=== PATIENT | male | born 1980 | race Caucasian/White ===

== ENCOUNTER 2016-03-30 19:57 | Emergency (ER) | payer OTHER ==
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
[2016-03-30] MEDS ORDERED: FLUoxetine HCL 20 MG CAP PO STA (21:40)
[2016-03-30] MEDS ORDERED: LORazepam 0.5 MG TAB PO STA (21:46)
[2016-03-30] MEDS ORDERED: LORazepam 1 MG TAB PO STA (22:38)
[2016-03-30 23:25] VITALS: BP 120/80; PULSE 62; RESP 18; TEMP 98
[2016-03-31] MEDS ORDERED: LORazepam 0.5 MG TAB PO SCH (21:00)
== END 2016-03-30 23:51 | disposition home or self-care (01) ==
LOC: EC 19:57
DX: F32.9 Major depressive disorder, single episode, unspecified (principal); F41.9 Anxiety disorder, unspecified; F90.9 Attention-deficit hyperactivity disorder, unspecified type; F17.200 Nicotine dependence, unspecified, uncomplicated; G40.909 Epilepsy, unspecified, not intractable, without status epilepticus; Z79.899 Other long term (current) drug therapy
CPT/HCPCS: 80306; 82075; 99284

== ENCOUNTER 2016-04-08 12:35 | Inpatient (IN) | payer MEDICAID, OTHER ==
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
[2016-04-08 17:42] VITALS: BMI 20.5
[2016-04-08] MEDS ORDERED: MAGNESIUM HYDROXIDE 2,400 MG/10 ML CUP PO PRN (18:06)
[2016-04-08] MEDS ORDERED: MAG HYDROX/AL HYDROX/SIMETH 30 ML CUP PO PRN (18:06)
[2016-04-08] MEDS ORDERED: ZIPRASIDONE 20 MG VIAL IM PRN (18:08)
[2016-04-08] MEDS: LORazepam 1 MG TAB PO PRN (18:43)
[2016-04-08] MEDS: DOXEPIN 10 MG CAP PO SCH (20:57)
[2016-04-08] MEDS: ACETAMINOPHEN TAB 325 MG TAB PO PRN (20:58)
[2016-04-09] MEDS ORDERED: FLUoxetine HCL 20 MG CAP PO SCH (09:00)
[2016-04-09] MEDS ORDERED: NICOTINE 14MG/24HR PATCH TRANSDERM SCH (09:00)
[2016-04-09] MEDS: ACETAMINOPHEN TAB 325 MG TAB PO PRN ×4 (09:04→22:14)
[2016-04-09] MEDS: LORazepam 1 MG TAB PO PRN ×2 (09:04→18:48)
[2016-04-09 09:13] LABS: Basophils # (A) 0.1 k/uL (0-0.2); Basophils % (A) 1 %; CH 31.4; CHCM 32.6; Eosinophils # (A) 0.2 k/uL (0-0.7); Eosinophils % (A) 2 %; HCT 46.2 % (39.0-53.0); HGB 14.4 gm/dL (13.0-17.5); Luc % (Auto) 1; Lymphocytes % (A) 19 %; MCH 30.2 pg (25.0-35.0); MCHC 31.2 g/dL (31.0-37.0); MCV 96.6 fL (80.0-100.0); Mean Platelet Volume 7.2; Monocytes # (A) 0.6 k/uL (0-1.0); Monocytes % (A) 6 %; Neutrophils # (A) 7.5 k/uL (1.3-7.7); Neutrophils % (A) 72 %; RBC 4.78 m/uL (4.30-5.90); RDW 12.6 % (11.5-15.5); WBC 10.4 k/uL (3.8-10.6); WBC (Perox) 10.88
[2016-04-09 10:26] LABS: ALT 24 U/L (21-72); AST 15 U/L (17-59); Alkaline Phosphatase 97 U/L (38-126); Anion Gap 11 mmol/L; Blood Urea Nitrogen 17 mg/dL (9-20); Calcium 9.9 mg/dL (8.4-10.2); Carbon Dioxide 27 mmol/L (22-30); Chloride 106 mmol/L (98-107); Glucose 101 mg/dL (74-99); Non-African American GFR(MDRD) >60 (>60 ml/min/1.73 sqM); Potassium 4.9 mmol/L (3.5-5.1); Sodium 144 mmol/L (137-145); Total Bilirubin 0.5 mg/dL (0.2-1.3)
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
[2016-04-09] MEDS: FLUoxetine HCL 20 MG CAP PO SCH (13:53)
--- NOTE | 2016-04-09 14:49 | CONS ---
DATE OF CONSULTATION: CHIEF COMPLAINT: Suicidal ideation and major depression. HISTORY OF PRESENT ILLNESS: This is a 35-year-old male who presented to the hospital with acute depression. Patient was presented to the inpatient psych floor. Patient currently is denying chest pain, shortness of breath, nausea, vomiting, abdominal pain, dizziness, weakness ( ). REVIEW OF SYSTEMS: All fourteen systems reviewed and negative except as above. ALLERGIES: No known drug allergies. PAST MEDICAL HISTORY: 1. Seizure disorder. 2. Migraine headache. 3.
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
[2016-04-09] MEDS ORDERED: ARIPiprazole 2 MG TAB PO SCH (21:00)
[2016-04-09 21:19] LABS: Amorphous Sediment,Urine Rare /hpf; Appearance,Urine Cloudy (Clear); Bilirubin,Urine Negative (Negative); Glucose,Urine (UA) Negative (Negative); Ketones,Urine Negative (Negative); Leukocyte Esterase,Urine Negative (Negative); Mucus,Urine Rare /hpf; Nitrite,Urine Negative (Negative); PH, Urine 6.5 (5.0-8.0); Particle Count 6003; Protein,Urine Negative (Negative); RBC,Urine 2 /hpf (0-5); Specific Gravity,Urine 1.016 (1.001-1.035); Squamous Epithelial Cell,Urine <1 /hpf (0-4); UA Billing (MACRO vs. MICRO) MICRO; Urobilinogen,Urine <2.0 mg/dL (<2.0); WBC,Urine 1 /hpf (0-5)
[2016-04-09] MEDS: DOXEPIN 10 MG CAP PO SCH (21:26)
[2016-04-10] MEDS: FLUoxetine HCL 20 MG CAP PO SCH (08:48)
[2016-04-10] MEDS: VENLAFAXINE HCL ER 37.5 MG CAP PO SCH (08:48)
[2016-04-10] MEDS: ACETAMINOPHEN TAB 325 MG TAB PO PRN ×3 (08:49→20:44)
[2016-04-10] MEDS: LORazepam 1 MG TAB PO PRN (08:50)
[2016-04-10] MEDS ORDERED: ZIPRASIDONE 20 MG CAP PO PRN (12:34)
[2016-04-10] MEDS: MELOXICAM 7.5 MG TAB PO SCH (12:55)
--- NOTE | 2016-04-10 15:27 | P.PN ---
Progress Note - Text SUBJECTIVE: He complained of increasing feelings of depression and anxiety. He requested an increase in the frequency of lorazepam. He also talked about his feelings of guilt over the of his mother. He revealed that his mother after taking several medications including methadone, Vicodin, Xanax , Ritalin and a "nerve relaxer". She had history of abuse of opiates, psychostimulants and benzodiazepine. Bony had been using drugs with her but was not present when she overdosed on these medications. He also requested something "for pain" complaining of the right foot pain. I explained that I would not increase the frequency of lorazepam because of a history of abuse of benzodiazepines and that I am reluctant to prescribe opiate pain medicines due to his history of abuse of narcotic pain medications. OBJECTIVE: Appendectomy presented as emotionally labile 35-year-old thin male who was pleasant on approach. He made eye contact and attended to interview. He had earrings and a pierced time otherwise no distinguishing features. He had a distressed facial expression. He had slight psychomotor retardation but no abnormal movements. His speech was spontaneous with slight increase in rate but normal volume and rhythm. His affect was dysphoric consisting of mixture of anger, anxiety, depression and guilt. He denied suicidal ideation or wishes. He denied homicidal ideation. He expressed feelings of helplessness, hopelessness and worthlessness. He ruminated about the guilt he feels about the of his mother. He did not express ideas reference or paranoid ideation. His thinking was concrete but his associations were coherent and logical. He denied hallucinations and did not appear to be responding to internal stimuli. ASSESSMENT: He feels guilty regarding the apparent unintentional overdose and of his mother. PLAN: Increase Abilify to 5 mg at bedtime change dosing of Geodon to 20 mg IM/ by mouth twice a day when necessary for agitation or acute anxiety, begin a trial of meloxicam 7.5 mg daily, continue doxepin 10 mg at bedtime, fluoxetine 20 mg daily, lorazepam 1 mg twice a day when necessary and Effexor XR 37.5 mg by mouth daily with titration according to therapeutic response and side effects.
[2016-04-10] MEDS: DOXEPIN 10 MG CAP PO SCH (20:43)
[2016-04-10] MEDS: ARIPiprazole 5 MG TAB PO SCH (20:43)
[2016-04-11] MEDS: MELOXICAM 7.5 MG TAB PO SCH (08:39)
[2016-04-11] MEDS: VENLAFAXINE HCL ER 37.5 MG CAP PO SCH (08:39)
[2016-04-11] MEDS: FLUoxetine HCL 20 MG CAP PO SCH (08:39)
[2016-04-11] MEDS: LORazepam 1 MG TAB PO PRN (08:41)
[2016-04-11] MEDS: ACETAMINOPHEN TAB 325 MG TAB PO PRN ×2 (12:12→16:12)
--- NOTE | 2016-04-11 14:09 | P.PN ---
Progress Note - Text SUBJECTIVE: Bony complained of feeling anxious, hopeless and helpless. She talked about missing his and children. He complained that his will not be able to visit today because tomorrow is a school night then she does not have anyone to watch the children. He also complained of continued for pain only partial relief with Mobic. He again requested prescriptions for narcotic pain medication. OBJECTIVE: He presented as a tall thin somewhat disheveled appearing 35-year- old male. He was pleasant on approach. He cried intermittently during the interview. He was restless and fidgety. His speech was spontaneous with decreased rate, rhythm and volume. His affect was dysphoric but stable and appropriate. He denied suicidal ideation or wish expressed feelings of hopelessness and helplessness. He played of subjective feelings of anxiety. He ruminated about his separation from his and children. He did not express ideas reference or paranoid ideation. His thinking was concrete but his associations were coherent and logical. He denied hallucinations and did not appear to be responding to internal stimuli. ASSESSMENT: He remains dysphoric and anxious. He continues to request opiate pain medicines. He was unhappy with my explanation that I am reluctant to prescribe opiate pain medicines because his history of substance use problems. PLAN: Continue current treatment plan and medications. If pain persists consult medicine for an opinion about the appropriateness of opiate pain medications. Encourage participation in therapeutic groups and activities. Evaluate clinical status response to treatment on a daily basis.
[2016-04-11] MEDS: ARIPiprazole 5 MG TAB PO SCH (21:30)
[2016-04-11] MEDS: DOXEPIN 10 MG CAP PO SCH (21:30)
[2016-04-12] MEDS: ACETAMINOPHEN TAB 325 MG TAB PO PRN ×4 (00:37→20:14)
[2016-04-12] MEDS: LORazepam 1 MG TAB PO PRN ×2 (02:19→14:46)
[2016-04-12] MEDS: VENLAFAXINE HCL ER 37.5 MG CAP PO SCH (09:18)
[2016-04-12] MEDS: MELOXICAM 7.5 MG TAB PO SCH (09:20)
--- NOTE | 2016-04-12 13:34 | P.PN ---
Progress Note - Text SUBJECTIVE: Bony was unable to sleep last night. He stated that he was anxious and restless. He attributed the increased anxiety to not being unable to speak with his yesterday. He said he called her several times. He eventually reached his at her mother's home. Apparently care mobile phone is not working. He also complains of continued foot pain not relieved by Tylenol or Mobic. He asked about a prescription for "another medication". I reiterated that I'll not prescribe an opiate pain medication because of his history of substance abuse. He inquired about methadone and stated that he did not use opiates when he was taking methadone. If I would prescribed methadone his would supervise and assure that he does not abuse the medication. I told that I would not prescribe him methadone under any circumstances but he may consider a methadone treatment program. OBJECTIVE: He presented as a tall thin casually groomed 35-year-old male who was pleasant on approach. He made intermittent eye contact but attempted to the interview. He had an anxious facial expression. He was alert and oriented to person, place and time. He showed no abnormality of psychomotor activity. He has slow gait and walked to protect his foot. His affect was anxious but stable and appropriate. He denied suicidal ideation or wishes. He denied homicidal ideation. He denied depressive cognitions such as hopelessness, helplessness or worthlessness. He ruminated about pain and opiate pain medications but denied obsessions or compulsions. He did not express ideas of reference or paranoid ideation. His thinking was concrete and associations were coherent and logical. He denied hallucinations and did not appear to responding to internal stimuli. ASSESSMENT: He is much to improve from admission and is not experiencing benzodiazepine withdrawal. He is complaining of pain and is preoccupied by obtaining opioid pain medications. PLAN: Increase Effexor to 75 mg daily, continue with current nonsteroidal anti- inflammatories, encourage continued participation in therapeutic groups and activities, discharge 04/13/2016.
[2016-04-12] MEDS: ARIPiprazole 5 MG TAB PO SCH (20:12)
[2016-04-12] MEDS: DOXEPIN 10 MG CAP PO SCH (20:12)
[2016-04-13] MEDS: LORazepam 1 MG TAB PO PRN (04:16)
[2016-04-13] MEDS: ACETAMINOPHEN TAB 325 MG TAB PO PRN ×2 (04:16→08:53)
[2016-04-13 06:36] VITALS: BP 102/61; PULSE 72; RESP 16; TEMP 98
[2016-04-13] MEDS: MELOXICAM 7.5 MG TAB PO SCH (08:53)
[2016-04-13] MEDS: VENLAFAXINE HCL ER 37.5 MG CAP PO SCH (08:55)
--- NOTE | 2016-04-13 12:54 | P.DS ---
Providers Date of admission: 04/08/16 16:30 Attending physician: Abdirahman Bauer MD Consults: 04/08/16 18:06 Consult Physician Routine Consulting Provider: Ceci Hernandez Consult Reason/Comments: H and P Do you want consulting provider notified?: Yes Primary care physician: Stated None - Discharge Diagnosis(es) (1) Major depressive disorder, recurrent severe without psychotic features Status: Resolved Priority: Medium (2) Sedative, hypnotic or anxiolytic use disorder, severe, in early remission Status: Chronic Priority: High (3) Opioid use disorder, moderate, dependence Status: Chronic Priority: Medium (4) Self-harming behavior Status: Chronic Priority: High Hospital Course: He is a 35-year-old male who presented involuntarily to the unit. His therapist at [facility] completed a Petition that read "this client came in to agency today. He indicated that he had cut himself last night with 2 knives which she showed author. He also showed author the cuts on his left shoulder/arm which had dried blood on them. He stated he was not in imminent danger of self-harm, but also indicated that he felt unstable, was angry with himself, blames himself for mother's ." This was his third psychiatric hospitalization last 12 months. He was last discharged from the unit on 02/24/2016 with the diagnoses of major depressive disorder, unspecified anxiety anxiety disorder and substance use disorder ( marijuana, opiate, tobacco). He has a history of nonlethal self-harm where he cuts himself on the shoulder with a knife. He stated that he became distressed yesterday evening and cut himself for "relief." He denied that he had cut himself with the intent to end his life. He also stated that he did not cut himself deeply showing that he was fully cognizant of his actions. He gave reasons for feeling distressed. He was angry at his that she has been abusing Ritalin. In response, he stated that he "took some Ritalin". He is also distressed that they are but still living together. He also expresses responsibility for the of his mother. He described a history of benzodiazepine abuse. He alleged that he was using up to 15 to 20 mg of Xanax per day. Over the "last few weeks" he has tapered his use and his allows him to take "0.25 or 0.5 mg at nighttime." He also described a history of amphetamine abuse. His drug of choice is Ritalin and he would either crush the tablets and insufflateor take the Ritalin orally. He described his actions to stop the use of Ritalin and alleged that he used once in the week prior to admission out of anger that his was using the drug. He complained of feeling anxious and depressed. He had difficulty describing the feelings of anxiety and depression. He experiences anxiety physically and describes having racing heart shortness of breath and lightheadedness. The depression is related to sadness and guilt over the of his mother. He found his mother in May 2015. According to the "autopsy" she from "mixing medications", i.e. a possible suicide. He feels responsible for his because he believes he should have monitor medication and medication use. He described experiencing "voices in my head." The experiences were not auditory perceptions but thoughts that he perceives as ego dystonic. The "voices" criticize him, condemn his actions and tell him to "end it". He believes he has no control over the thoughts and thoughts are intrusive and distressing. He denied compulsive behaviors such as checking, counting or arranging. He denied thought broadcasting, thought withdrawal or thought control. He denied visual or olfactory hallucinations. He completed the Rivera Depression Inventory his total score was 33 consistent with severe symptoms of depression. He rated the following symptoms as severe: Sadness, past failure, punishment feelings, self dislike, self criticalness, crying, agitation, worthlessness, changes in sleep pattern, and concentration difficulty. He has a history of ADHD diagnosis a child and treated with psychostimulants. This is his third admission to this unit over the last 12 months. He was admitted in November 2015 and in February 2016. He presented in November 2015 with suicidal thoughts and laceration to his left shoulder requiring suturing. The discharge diagnoses include unspecified depressive disorder and substance use disorder. His discharge medications included Prozac 20 mg per day , trazodone 150 mg at bedtime and [facility] In February the police brought him to the hospital because he was found sleeping in a park. He has several self-inflicted lacerations to his left shoulder that required sutures for 5 of the wounds. He was distressed because he was purportedly in the process of his . He stated he cut himself to "deal with the pain". His discharge medications included Prozac 40 mg daily and Sinequan 10 mg at bedtime. We referred him to [facility]. He has a history of benzodiazepine and psychostimulant abuse. His drugs of choice are Xanax and Ritalin. As mentioned above he was using up to 20 mg of Xanax per day and unspecified amount of Ritalin. He insufflate and took the Ritalin by mouth; he denied IV use. He denied recent use of alcohol but described a history of "heavy" alcohol use where he was drinking daily to intoxication and experienced a seizure during the peak of his alcohol use. He was at [facility] program from March 26 through the for the treatment of his benzodiazepine use problems. He was discharged without completing the program. He stated "they kicked me out." He he was emotionally distraught, restlessness and had crying episodes at the program. [facility] referred him to our ER where he complained of feeling jittery, nervous and missing his and children. The ER discharged him because he denied suicidal ideation, plan or intent. He smokes marijuana daily but denied that his use has caused problems. He has used methamphetamine but denied current use. He denied the use of heroin, cocaine or oral opioid pain medications. Hospital Course: We admitted him to the psychiatric unit under the care of this fha underwriter. We provided a biopsychosocial assessment. The senior staff consultant ditching machine operating engineer completed the initial physical exam and medical history. At the senior staff consultant diagnoses include seizure disorder, migraine headaches, past history of closed head injury, right ankle surgery with internal fixation. He had multiple superficial lacerations to his left shoulder and several well-healed scars. We treated his anxiety with when necessary doses of lorazepam; given his history of benzodiazepine abuse we monitored the frequency. We continued Sinequan 10 mg at bedtime. Prescribed venlafaxine titrating up to 75 mg per day for the treatment of depression and added Abilify 5 mg at bedtime for depression and insomnia. He was medication seeking throughout this hospitalization. He complained of severe ankle not relieved by nonsteroidal anti-inflammatories. During one meeting he requested a prescription for methadone alleging that "a doctor" had prescribed methadone and when he was taken methadone he "did not use other opiates." We repeatedly declined his request for the prescription of opiate pain medications. He was intermittently distressed during the hospitalization level of distress was related to interpersonal issues more often than not feeling alone or abandoned by his or children. At the time of discharge he complained of feeling anxious but denied thoughts of or suicide. He denied urges to cut himself. He agreed to continue outpatient services through [facility]. Patient Condition at Discharge: Fair Plan - Discharge Summary New Discharge Prescriptions: ARIPiprazole [Abilify] 5 mg PO HS 30 Days Doxepin [SINEquan] 10 mg PO HS 30 Days Meloxicam [Mobic] 7.5 mg PO DAILY 30 Days Venlafaxine HCl ER [Effexor XR] 75 mg PO DAILY 30 Days Discharge Medication List ARIPiprazole [Abilify] 5 mg PO HS 30 Days 04/13/16 [Rx] Doxepin [SINEquan] 10 mg PO HS 30 Days 04/13/16 [Rx] Meloxicam [Mobic] 7.5 mg PO DAILY 30 Days 04/13/16 [Rx] Venlafaxine HCl ER [Effexor XR] 75 mg PO DAILY 30 Days 04/13/16 [Rx] Follow up Appointment(s)/Referral(s): [facility] [Outside] - 04/19/16 9:30 am (04/19/16 at 930 w Sherri ) None,Stated [Primary Care Provider] - 1-2 days Patient Instructions/Handouts: Depression (DC), Suicide Prevention for Adults ( DC) Discharge Disposition: HOME SELF-CARE
== END 2016-04-13 10:18 | disposition home or self-care (01) | DRG 885 ==
LOC: EC 12:35 → 3MHU 16:30
PROVIDERS: ADMIT Psychiatry & Neurology Psychiatry; ATTEND Psychiatry & Neurology Psychiatry
DX: F33.2 Major depressive disorder, recurrent severe without psychotic features (principal); R45.851 Suicidal ideations; F11.20 Opioid dependence, uncomplicated; F13.20 Sedative, hypnotic or anxiolytic dependence, uncomplicated; F90.9 Attention-deficit hyperactivity disorder, unspecified type; F41.9 Anxiety disorder, unspecified; F12.10 Cannabis abuse, uncomplicated; F41.0 Panic disorder [episodic paroxysmal anxiety]; F15.10 Other stimulant abuse, uncomplicated; M79.671 Pain in right foot; G40.909 Epilepsy, unspecified, not intractable, without status epilepticus; G47.00 Insomnia, unspecified; G43.909 Migraine, unspecified, not intractable, without status migrainosus; F17.200 Nicotine dependence, unspecified, uncomplicated; Z91.5 Personal history of self-harm; Z63.0 Problems in relationship with spouse or partner; Z81.8 Family history of other mental and behavioral disorders; Z87.442 Personal history of urinary calculi; Z86.14 Personal history of Methicillin resistant Staphylococcus aureus infection; Z79.899 Other long term (current) drug therapy; Z98.52 Vasectomy status; Z81.3 Family history of other psychoactive substance abuse and dependence; Z82.49 Family history of ischemic heart disease and other diseases of the circulatory system; Z91.81 History of falling; Z87.81 Personal history of (healed) traumatic fracture; Z76.5 Malingerer [conscious simulation]; Z87.828 Personal history of other (healed) physical injury and trauma; Z56.0 Unemployment, unspecified
CPT/HCPCS: 80053; 80306; 81001; 82075; 84443; 85025; 99285

== ENCOUNTER 2016-04-27 18:18 | Emergency (ER) | payer OTHER ==
[2016-04-27 18:23] VITALS: TEMP 99.3
[2016-04-27] MEDS ORDERED: FAMOTIDINE 20 MG/2 ML VIAL IV STA (18:32)
[2016-04-27] MEDS ORDERED: SODIUM CHLORIDE 0.9% 500 ML IV STA (18:32)
[2016-04-27] MEDS ORDERED: methylPREDNISolone SOD SUCCI 125 MG/2 ML VIAL IV STA (18:32)
[2016-04-27] MEDS ORDERED: diphenhydrAMINE 50 MG/ML 1 ML VIAL IVP STA (18:32)
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
[2016-04-27] MEDS ORDERED: SODIUM CHLORIDE 0.9% 1,000 ML IV STA (19:30)
[2016-04-27] MEDS ORDERED: MORPHINE SULFATE 4 MG/ML SYRINGE IVP STA (19:30)
[2016-04-27] MEDS ORDERED: DEXAMETHASONE SOD PHOSPHATE 10 MG/ML 1 ML VIAL IV STA (19:30)
[2016-04-27] MEDS ORDERED: EPINEPHrine 1 MG/ML 1 ML AMP SQ ONE (19:30)
[2016-04-27] MEDS ORDERED: PENICILLIN VK 500MG STARTER 4 TAB BTL PO STA (19:31)
[2016-04-27] MEDS ORDERED: PENICILLIN V POTASSIUM 250 MG TAB PO STA (19:31)
[2016-04-27 19:42] VITALS: BP 128/79; PULSE 113; RESP 20
[2016-04-27] MEDS ORDERED: HYDROcodone/APAP 5-325MG 1 EACH TAB PO STA (19:53)
[2016-04-27] MEDS ORDERED: DEXAMETHASONE SOD PHOSPHATE 10 MG/ML 1 ML VIAL IM STA (20:00)
== END 2016-04-27 19:42 | disposition home or self-care (01) ==
LOC: EC 18:18
DX: T78.3XXA Angioneurotic edema, initial encounter (principal); T78.2XXA Anaphylactic shock, unspecified, initial encounter; F32.9 Major depressive disorder, single episode, unspecified; F41.9 Anxiety disorder, unspecified; F41.0 Panic disorder [episodic paroxysmal anxiety]; F90.9 Attention-deficit hyperactivity disorder, unspecified type; Z53.9 Procedure and treatment not carried out, unspecified reason; F17.200 Nicotine dependence, unspecified, uncomplicated; Z79.899 Other long term (current) drug therapy; Z88.8 Allergy status to other drugs, medicaments and biological substances
CPT/HCPCS: 99283; 96374; 96375 ×2; 96372; 96361; J1200; J1100; J2930

== ENCOUNTER 2016-05-03 22:49 | Emergency (ER) | payer OTHER ==
[2016-05-03 22:53] VITALS: TEMP 97.7
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
[2016-05-03] MEDS ORDERED: SODIUM CHLORIDE 0.9% 1,000 ML IV SCH (23:45)
[2016-05-04 00:26] LABS: Basophils % (A) 0 %; CH 31.9; CHCM 33.5; Eosinophils % (A) 0 %; HCT 37.7 % (39.0-53.0); HDW 2.36; HGB 12.1 gm/dL (13.0-17.5); Luc # (Auto) 0.11; Luc % (Auto) 1; Lymphocytes # (A) 1.5 k/uL (1.0-4.8); Lymphocytes % (A) 11 %; MCH 30.7 pg (25.0-35.0); MCV 95.8 fL (80.0-100.0); Mean Platelet Volume 7.7; Monocytes # (A) 0.5 k/uL (0-1.0); Monocytes % (A) 4 %; Neutrophils # (A) 11.1 k/uL (1.3-7.7); Neutrophils % (A) 84 %; RBC 3.94 m/uL (4.30-5.90); RDW 13.1 % (11.5-15.5); WBC 13.3 k/uL (3.8-10.6); WBC (Perox) 13.68
[2016-05-04 00:47] LABS: ALT 22 U/L (21-72); AST 16 U/L (17-59); Alkaline Phosphatase 101 U/L (38-126); Anion Gap 7 mmol/L; Blood Urea Nitrogen 12 mg/dL (9-20); Calcium 9.6 mg/dL (8.4-10.2); Carbon Dioxide 27 mmol/L (22-30); Chloride 106 mmol/L (98-107); Glucose 143 mg/dL (74-99); Non-African American GFR(MDRD) >60 (>60 ml/min/1.73 sqM); Potassium 3.9 mmol/L (3.5-5.1); Sodium 140 mmol/L (137-145); Total Bilirubin 0.2 mg/dL (0.2-1.3); Total Protein 6.2 g/dL (6.3-8.2)
[2016-05-04 00:57] LABS: Creatine Kinase 81 U/L (55-170)
--- NOTE | 2016-05-04 01:03 | XR ---
EXAMINATION TYPE: XR chest 2V DATE OF EXAM: 05/03/2016 11:44 PM COMPARISON: None. HISTORY: History of chest pain anxiety TECHNIQUE: Frontal and lateral views of the chest are obtained. FINDINGS: There is no focal air space opacity, pleural effusion, or pneumothorax seen. The cardiac silhouette size is within normal limits. The osseous structures are intact. IMPRESSION: No acute cardiopulmonary process.
[2016-05-04 01:09] LABS: Creatine Kinase MB 1.2 ng/mL (0.0-2.4); Troponin I <0.012 ng/mL (0.000-0.034)
[2016-05-04 01:49] VITALS: BP 113/72; PULSE 79; RESP 16
== END 2016-05-04 01:48 | disposition home or self-care (01) ==
LOC: EC 22:49
DX: F41.9 Anxiety disorder, unspecified (principal); F17.200 Nicotine dependence, unspecified, uncomplicated; Z86.14 Personal history of Methicillin resistant Staphylococcus aureus infection; Z88.8 Allergy status to other drugs, medicaments and biological substances; Z79.899 Other long term (current) drug therapy; F32.9 Major depressive disorder, single episode, unspecified; F41.0 Panic disorder [episodic paroxysmal anxiety]; Z79.1 Long term (current) use of non-steroidal anti-inflammatories (NSAID); Z79.52 Long term (current) use of systemic steroids
CPT/HCPCS: 36415; 71020; 80053; 82550; 82553; 84484; 85025; 93005; 96360; 96361; 99285

== ENCOUNTER 2016-06-20 03:49 | Emergency (ER) | payer MEDICAID, OTHER ==
[2016-06-20 04:17] VITALS: RESP 18
[2016-06-20] MEDS ORDERED: IBUPROFEN 400 MG TAB PO STA (05:03)
[2016-06-20] MEDS ORDERED: HYDROcodone/APAP 5-325MG 1 EACH TAB PO STA (05:03)
[2016-06-20 05:37] LABS: Basophils # (A) 0.1 k/uL (0-0.2); Basophils % (A) 1 %; CHCM 33.1; Eosinophils # (A) 0.2 k/uL (0-0.7); Eosinophils % (A) 1 %; HCT 40.2 % (39.0-53.0); HGB 13.4 gm/dL (13.0-17.5); Luc # (Auto) 0.22; Luc % (Auto) 1; Lymphocytes # (A) 1.9 k/uL (1.0-4.8); Lymphocytes % (A) 12 %; MCH 32.3 pg (25.0-35.0); MCHC 33.3 g/dL (31.0-37.0); Mean Platelet Volume 6.7; Monocytes # (A) 0.7 k/uL (0-1.0); Monocytes % (A) 5 %; Neutrophils # (A) 12.8 k/uL (1.3-7.7); Neutrophils % (A) 80 %; RBC 4.14 m/uL (4.30-5.90); RDW 12.8 % (11.5-15.5); WBC 15.9 k/uL (3.8-10.6); WBC (Perox) 16.58
[2016-06-20 05:47] LABS: Anion Gap 5 mmol/L; Blood Urea Nitrogen 8 mg/dL (9-20); Calcium 9.2 mg/dL (8.4-10.2); Carbon Dioxide 28 mmol/L (22-30); Chloride 109 mmol/L (98-107); Glucose 96 mg/dL (74-99); Non-African American GFR(MDRD) >60 (>60 ml/min/1.73 sqM); Potassium 3.8 mmol/L (3.5-5.1); Sodium 142 mmol/L (137-145)
[2016-06-20 06:53] LABS: Erythrocyte Sedimentation Rate 2 mm/hr (0-15)
--- NOTE | 2016-06-20 07:14 | XR ---
EXAMINATION TYPE: XR foot complete RT DATE OF EXAM ORDERED: 06/20/2016 7:08 AM HISTORY: Pain. COMPARISON: Previous study dated 12/22/2015. FINDINGS: There is screw and plate fixation of the lateral aspect of the calcaneus. There is a loss of Boehler's angle. This is unchanged. The bones are somewhat osteopenic. This may be due to disuse o r Sudex atrophy. There is a stable, well-corticated fragment adjacent to the medial aspect of the dis ana phalanx of the great toe. No acute fracture or dislocation is seen. IMPRESSION: 1. OSTEOPENIA. 2. POSTSURGICAL CHANGE. 3. NO ACUTE OSSEOUS LESION.
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
[2016-06-20 09:12] VITALS: BP 123/63; PULSE 74; TEMP 98
== END 2016-06-20 09:12 | disposition home or self-care (01) ==
LOC: EC 03:49
DX: M79.671 Pain in right foot (principal); G89.29 Other chronic pain; F39 Unspecified mood [affective] disorder; F17.200 Nicotine dependence, unspecified, uncomplicated; F41.9 Anxiety disorder, unspecified; F32.9 Major depressive disorder, single episode, unspecified; F41.0 Panic disorder [episodic paroxysmal anxiety]; Z79.899 Other long term (current) drug therapy; Z88.8 Allergy status to other drugs, medicaments and biological substances; Z86.14 Personal history of Methicillin resistant Staphylococcus aureus infection; Z79.1 Long term (current) use of non-steroidal anti-inflammatories (NSAID); Z79.52 Long term (current) use of systemic steroids
CPT/HCPCS: 36415; 80048; 82075; 85025; 85652; 86140; 99283

== ENCOUNTER 2016-08-16 03:02 | Emergency (ER) | payer OTHER ==
[2016-08-16 03:07] VITALS: TEMP 97.8
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
[2016-08-16] MEDS ORDERED: HYDROcodone/APAP 5-325MG 1 EACH TAB PO STA (03:28)
[2016-08-16 03:54] LABS: Appearance,Urine Clear (Clear); Bilirubin,Urine Negative (Negative); Glucose,Urine (UA) Negative (Negative); Ketones,Urine Negative (Negative); Leukocyte Esterase,Urine Negative (Negative); Nitrite,Urine Negative (Negative); PH, Urine 5.5 (5.0-8.0); Protein,Urine Negative (Negative); Specific Gravity,Urine 1.001 (1.001-1.035); UA Billing (MACRO vs. MICRO) CHEM; Urobilinogen,Urine <2.0 mg/dL (<2.0)
--- NOTE | 2016-08-16 05:27 | US ---
EXAM: US Scrotum CLINICAL HISTORY: Pain and swelling in the left testicle TECHNIQUE: Real-time ultrasound of the scrotum with color Doppler and image documentation. COMPARISON: No relevant prior studies available. FINDINGS: Right testicle: 4 x 2.5 x 3.3 cm . Normal echogenicity. Good color flow and Doppler waveform. There is no evidence of testicular torsion. Left testicle: 3.7 x 2.7 x 2.9 cm . Normal echogenicity. No torsion. Epididymides: Right Epididymis: 1.0 cm Left Epididymis: 1.0 cm Scrotum: Trace bilateral hydroceles.. No varicocele. IMPRESSION: Trace bilateral hydroceles. Otherwise, negative.
[2016-08-16 06:28] VITALS: BP 138/95; PULSE 89; RESP 18
== END 2016-08-16 06:28 | disposition home or self-care (01) ==
LOC: EC 03:02
DX: N50.82 Scrotal pain (principal); F41.0 Panic disorder [episodic paroxysmal anxiety]; F32.9 Major depressive disorder, single episode, unspecified; F17.200 Nicotine dependence, unspecified, uncomplicated; Z79.899 Other long term (current) drug therapy
CPT/HCPCS: 76870; 81003; 93975; 99284

== ENCOUNTER 2016-10-20 11:12 | Observation (INO) | payer OTHER ==
[2016-10-20] MEDS ORDERED: SODIUM CHLORIDE 0.9% 1,000 ML IV STA ×2 (11:25→12:39)
[2016-10-20] MEDS ORDERED: HYDROmorphone 1 MG/ML 1 ML SYRINGE IVP STA (11:25)
[2016-10-20] MEDS ORDERED: ONDANSETRON 4 MG/2 ML VIAL IVP STA (11:25)
[2016-10-20] MEDS ORDERED: FAMOTIDINE 20 MG/2 ML VIAL IV STA (11:26)
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
--- NOTE | 2016-10-20 11:59 | XR ---
EXAMINATION TYPE: XR KUB DATE OF EXAM: 10/20/2016 CLINICAL HISTORY: Abdominal pain and vomiting for 2 days TECHNIQUE: Single supine KUB image of the abdomen is obtained. COMPARISON: 06/10/2015 FINDINGS: Scattered gas is seen in non-distended small bowel loops. Gas and fecal material is seen in non-distended colon. There is no visceromegaly, pneumoperitoneum, or abnormal calcification appr eciated. The lung bases are clear and the osseous structures are intact. IMPRESSION: Nonobstructive bowel gas pattern, unchanged from the prior.
[2016-10-20 12:00] LABS: Basophils # (A) 0.1 k/uL (0-0.2); Basophils % (A) 1 %; CH 32.5; CHCM 35.2; Eosinophils % (A) 0 %; HCT 50.9 % (39.0-53.0); HDW 2.31; HGB 17.2 gm/dL (13.0-17.5); Luc # (Auto) 0.21; Luc % (Auto) 1; Lymphocytes # (A) 2.1 k/uL (1.0-4.8); Lymphocytes % (A) 14 %; MCH 31.4 pg (25.0-35.0); MCHC 33.9 g/dL (31.0-37.0); MCV 92.6 fL (80.0-100.0); Mean Platelet Volume 7.8; Monocytes # (A) 0.9 k/uL (0-1.0); Monocytes % (A) 6 %; Neutrophils # (A) 11.3 k/uL (1.3-7.7); Neutrophils % (A) 77 %; RBC 5.49 m/uL (4.30-5.90); RDW 13.7 % (11.5-15.5); WBC 14.6 k/uL (3.8-10.6); WBC (Perox) 14.64
[2016-10-20 12:12] LABS: Calcium 10.4 mg/dL (8.4-10.2); Potassium 4.1 mmol/L (3.5-5.1); Total Bilirubin 1.6 mg/dL (0.2-1.3); Total Protein 9.3 g/dL (6.3-8.2)
--- NOTE | 2016-10-20 13:49 | CT ---
EXAMINATION TYPE: CT abdomen pelvis wo con DATE OF EXAM: 10/20/2016 COMPARISON: CT abdomen and pelvis 06/10/2015 HISTORY: 36-year-old male complains of left flank pain. CT DLP: 638 mGycm. Automated exposure control for dose reduction was used. TECHNIQUE: Contiguous axial scanning of the abdomen and pelvis without IV contrast. Coronal and sagit ana reconstructions performed. FINDINGS: The heart is normal size without pericardial effusion. Mild dependent atelectasis along the posterior lung bases. Tiny hiatal hernia. Focal fat along the anterior falciform ligament. Noncontrast appearance of the gallbladder, adrenal g lands, spleen, and pancreas show no gross abnormality. There is a 1.3 cm hypodensity within the mid left kidney this shows fluid attenuation suggestive of a cyst and appears new from 06/10/2015. There is a punctate 2 mm calculus anterior lower pole right kidney. Otherwise, no nephrolithiasis or hydronephrosis. No dilated small bowel, free fluid, or free air. Normal appendix. Mild stool scattered throughout the colon without paracolonic inflammatory change. Mild circumferential of bladder wall thickening. Prostate gland is enlarged measuring 5.0 cm wide. No abnormal fluid collection in the pelvis or pelvic lymphadenopathy seen. Bones: No osseous destructive process. IMPRESSION: 1. Punctate 2 mm right renal calculus. No hydronephrosis or suspicious calculus seen along the cours e of either ureter. 2. Mild circumferential bladder wall thickening could reflect bladder wall hypertrophy or cystitis. Clinically correlate. 3. Prostatic enlargement (5.0 cm wide). 4. Tiny hiatal hernia.
[2016-10-20 14:21] LABS: Appearance,Urine Clear (Clear); Bilirubin,Urine 1+ (Negative); Glucose,Urine (UA) Negative (Negative); Ketones,Urine 2+ (Negative); Leukocyte Esterase,Urine Negative (Negative); Nitrite,Urine Negative (Negative); Protein,Urine Trace (Negative); Specific Gravity,Urine 1.017 (1.001-1.035); UA Billing (MACRO vs. MICRO) CHEM; Urobilinogen,Urine <2.0 mg/dL (<2.0)
[2016-10-20] MEDS ORDERED: HYDROmorphone 1 MG/ML 1 ML SYRINGE IV PRN (14:53)
[2016-10-20] MEDS ORDERED: ACETAMINOPHEN TAB 325 MG TAB PO PRN (14:53)
[2016-10-20] MEDS ORDERED: NALOXONE 0.4 MG/ML 1 ML VIAL IV PRN (14:53)
[2016-10-20] MEDS ORDERED: LORazepam 2 MG/ML SYRINGE IV PRN (14:53)
[2016-10-20 16:04] LABS: Acetaminophen <10.0 ug/mL; Salicylate <1.0 mg/dL
[2016-10-20] MEDS: HYDROcodone/APAP 5-325MG 1 EACH TAB PO PRN ×2 (16:51→21:16)
[2016-10-20] MEDS: ONDANSETRON 4 MG/2 ML VIAL IVP PRN (16:56)
[2016-10-20] MEDS: PANTOPRAZOLE 40 MG/10 ML VIAL IVP SCH (20:40)
[2016-10-20] MEDS: GABAPENTIN 300 MG CAP PO SCH (21:15)
[2016-10-20] MEDS: MIRTAZAPINE 15 MG TAB PO SCH (21:16)
[2016-10-20] MEDS: ARIPiprazole 15 MG TAB PO SCH (21:16)
[2016-10-21] MEDS: ONDANSETRON 4 MG/2 ML VIAL IVP PRN ×2 (06:25→16:24)
[2016-10-21] MEDS: HYDROcodone/APAP 5-325MG 1 EACH TAB PO PRN ×4 (06:25→20:20)
[2016-10-21 08:08] LABS: Basophils # (A) 0.1 k/uL (0-0.2); Basophils % (A) 1 %; CH 31.5; CHCM 33.7; Eosinophils # (A) 0.2 k/uL (0-0.7); Eosinophils % (A) 2 %; HCT 43.6 % (39.0-53.0); HDW 2.28; HGB 14.6 gm/dL (13.0-17.5); Luc # (Auto) 0.19; Luc % (Auto) 2; Lymphocytes # (A) 2.3 k/uL (1.0-4.8); Lymphocytes % (A) 25 %; MCH 31.5 pg (25.0-35.0); MCHC 33.5 g/dL (31.0-37.0); Mean Platelet Volume 6.8; Monocytes # (A) 0.5 k/uL (0-1.0); Monocytes % (A) 5 %; Neutrophils % (A) 65 %; RBC 4.63 m/uL (4.30-5.90); RDW 12.5 % (11.5-15.5); WBC 9.2 k/uL (3.8-10.6); WBC (Perox) 10.15
[2016-10-21 08:24] LABS: ALT 25 U/L (21-72); AST 27 U/L (17-59); Alkaline Phosphatase 87 U/L (38-126); Anion Gap 9 mmol/L; Blood Urea Nitrogen 21 mg/dL (9-20); Calcium 9.2 mg/dL (8.4-10.2); Carbon Dioxide 29 mmol/L (22-30); Chloride 102 mmol/L (98-107); Glucose 87 mg/dL (74-99); Non-African American GFR(MDRD) >60 (>60 ml/min/1.73 sqM); Potassium 3.9 mmol/L (3.5-5.1); Sodium 140 mmol/L (137-145); Total Bilirubin 1.9 mg/dL (0.2-1.3); Total Protein 6.5 g/dL (6.3-8.2)
--- NOTE | 2016-10-21 08:24 | HP ---
DATE OF SERVICE: 10/20/2016 CHIEF COMPLAINTS: Nausea and vomiting HISTORY OF PRESENT ILLNESS: This 36-year-old gentleman with past medical history of multiple medical problems including migraines, history of MRSA, ADHD , anxiety, depression being followed by Dr. Hightower in the outpatient setting was complaining of vomiting for the last several days. The patient unable to keep anything down. The patient came to [facility] and creatinine was found to be 2.03 indicating acute renal failure. Patient admitted for further evaluation and treatment. There is no history of fever or rigors. No history of headache, loss of consciousness or seizures. PAST MEDICAL HISTORY: History of seizure disorder, migraine, MRSA, hernia repair, ADHD, anxiety. Medications prior to admission include: 1. Effexor XR 150 mg p.o daily. 2. Remeron 30 mg p.o q.h.s 3. Neurontin 300 mg p.o t.i.d 4. Vitamin D2 50,000 q.7 days. 5. Abilify 50 mg p.o q.h.s ALLERGIES: BENZOCAINE, CARBIMIDE, ZINC. FAMILY HISTORY: History of heart problems in the family. SOCIAL HISTORY: History of smoking. No history of alcohol intake and no history of substance abuse. REVIEW OF SYSTEMS: ENT: No diminished hearing or vision. CARDIOVASCULAR: No angina. RESPIRATORY: No cough or hemoptysis. GI: As mentioned earlier. : As mentioned earlier. NERVOUS SYSTEM: No numbness or weakness. ALLERGY/IMMUNOLOGY: No asthma or hayfever. MUSCULOSKELETAL: As mentioned earlier. HEMATOLOGY/ONCOLOGY: No history of anemia. ENDOCRINE: No history of diabetes or hypothyroidism. CONSTITUTIONAL: As mentioned earlier. DERMATOLOGY: Negative. RHEUMATOLOGY: Negative. PSYCHIATRY: As mentioned earlier. PHYSICAL EXAMINATION: The patient is alert and oriented x3. Pulse is 65, blood pressure 112/71, respirations 16, temperature 98.1, pulse ox 90% on room air. HEENT: Conjunctivae normal. NECK: No jugular venous distention. CARDIOVASCULAR: S1, S2. RESPIRATORY: Breath sounds diminished at the bases. No rhonchi, no crackles. ABDOMEN: Soft, mild diffuse discomfort on palpitations. Nontender, no guarding, no rigidity, no mass palpable. LEGS: No edema, no swelling. NERVOUS SYSTEM: Higher function as mentioned. Moves all four limbs. No focal motor sensory deficits. LYMPHATICS: No lymphadenopathy in the neck, axillae or groin. SKIN: No rash, ulcer or bleeding. LABS: WBC 14.7, hemoglobin 7.2, sodium 130, potassium 4.1. ASSESSMENT: 1. Recurrent nausea, vomiting, possible acute gastritis. 2. Acute renal failure possibly secondary to renal failure and dehydration. 3. History of seizure disorder. 4. History of migraines. 5. History of MRSA. 6. History of ADD, ADHD. 7. History of anxiety, depression and panic disorder. 8. History of nicotine dependence. 9. History of THC. 10. Previous history of prescription drug abuse per chart. 11. FULL CODE. RECOMMENDATIONS AND DISCUSSION: In this 36-year-old gentleman, who presented with multiple complex medical issues, we will monitor the patient closely. Continue the current medications. Continue symptomatic treatment. Otherwise at this time I recommend IV fluids. Monitor creatinine closely. Avoid nephrotoxic agents. Guarded prognosis because of multiple complex medical issues. I discussed with patient who understands. Further recommendations to follow. MTDD
[2016-10-21] MEDS: VENLAFAXINE HCL ER 150 MG CAP PO SCH (09:07)
[2016-10-21] MEDS: GABAPENTIN 300 MG CAP PO SCH ×3 (09:07→20:37)
[2016-10-21] MEDS: PANTOPRAZOLE 40 MG/10 ML VIAL IVP SCH ×2 (09:07→20:19)
[2016-10-21 14:25] VITALS: BMI 23.0
[2016-10-21] MEDS: ARIPiprazole 15 MG TAB PO SCH (20:19)
[2016-10-21] MEDS: MIRTAZAPINE 15 MG TAB PO SCH (20:19)
[2016-10-22] MEDS: HYDROcodone/APAP 5-325MG 1 EACH TAB PO PRN ×2 (04:33→08:40)
[2016-10-22] MEDS: ONDANSETRON 4 MG/2 ML VIAL IVP PRN (04:33)
[2016-10-22 07:30] VITALS: BP 114/66; PULSE 59; RESP 18; TEMP 98
[2016-10-22] MEDS: VENLAFAXINE HCL ER 150 MG CAP PO SCH (08:40)
[2016-10-22] MEDS: PANTOPRAZOLE 40 MG/10 ML VIAL IVP SCH (08:40)
[2016-10-22] MEDS: GABAPENTIN 300 MG CAP PO SCH (08:40)
--- NOTE | 2016-10-22 08:43 | PN ---
DATE OF SERVICE: 10/21/2016 This 36-year-old gentleman who was admitted with recurrent nausea, vomiting, possibly acute gastritis is being closely monitored. No chest pain, no palpitations, no fever. The creatinine is improved significantly. On exam, alert, oriented x3. Pulse 59, blood pressure 116/68, respirations 16, temperature 97.4, pulse ox 90% on room air. HEENT: Conjunctivae normal. NECK: No jugular venous distention. CARDIOVASCULAR: S1, S2. RESPIRATORY: Breath sounds diminished at the bases. ABDOMEN: Soft, nontender. LEGS: No edema, no swelling. NERVOUS SYSTEM: No focal deficits. LABS: CBC within normal limits. Creatinine is 0.9, BUN 21. ASSESSMENT: 1. Recurrent nausea, vomiting, possibly acute gastritis. 2. Acute renal failure possibly secondary to renal failure and dehydration. 3. History of seizure disorder. 4. History of migraine. RECOMMENDATIONS AND DISCUSSION: I recommend to continue the current medications, continue monitoring, continue symptomatic treatment. Advance diet, monitor patient closely. Continue with IV fluids. Repeat labs in the morning. Guarded prognosis. Further recommendations to follow. MTDD
[2016-10-22 10:52] LABS: Basophils # (A) 0.1 k/uL (0-0.2); Basophils % (A) 1 %; CH 31.5; CHCM 33.9; Eosinophils # (A) 0.2 k/uL (0-0.7); Eosinophils % (A) 3 %; HCT 42.4 % (39.0-53.0); HDW 2.42; HGB 14.5 gm/dL (13.0-17.5); Luc # (Auto) 0.12; Luc % (Auto) 2; Lymphocytes # (A) 1.5 k/uL (1.0-4.8); Lymphocytes % (A) 23 %; MCH 31.8 pg (25.0-35.0); MCHC 34.1 g/dL (31.0-37.0); MCV 93.3 fL (80.0-100.0); Mean Platelet Volume 7.1; Monocytes # (A) 0.4 k/uL (0-1.0); Monocytes % (A) 6 %; Neutrophils # (A) 4.2 k/uL (1.3-7.7); Neutrophils % (A) 65 %; RBC 4.55 m/uL (4.30-5.90); RDW 12.4 % (11.5-15.5); WBC 6.5 k/uL (3.8-10.6); WBC (Perox) 6.39
[2016-10-22 11:06] LABS: Anion Gap 5 mmol/L; Blood Urea Nitrogen 14 mg/dL (9-20); Calcium 9.2 mg/dL (8.4-10.2); Carbon Dioxide 30 mmol/L (22-30); Chloride 105 mmol/L (98-107); Glucose 90 mg/dL (74-99); Non-African American GFR(MDRD) >60 (>60 ml/min/1.73 sqM); Potassium 4.3 mmol/L (3.5-5.1); Sodium 140 mmol/L (137-145)
--- NOTE | 2016-10-22 21:52 | P.DS ---
Providers Date of admission: 10/20/16 15:16 Attending physician: Elisha Perez Primary care physician: Cydney Funezrecht [place] Hospital Course: This 36-year-old gentleman was admitted with recurrent nausea and vomiting. Acute gastritis was consulted. Patient also had acute renal failure possibly prerenal renal failure and acute tubular necrosis. IV fluids where given. Patient responded to IV fluids. On exam vitals are stable S1 and S2 normal breath sounds normal abdomen soft nontender. Final diagnosis #1 acute renal failure possibly secondary to predetermine factors and acute tubular necrosis and dehydration #2- recurrent nausea acute gastritis #3 seizure disorder #4 migraine Patient Condition at Discharge: Stable Plan - Discharge Summary New Discharge Prescriptions: New Acetaminophen Tab [Tylenol] 650 mg PO Q6HR PRN tab PRN Reason: Mild Pain Or Fever > 100.5 Famotidine [Pepcid] 20 mg PO DAILY #20 tablet Continue Venlafaxine HCl ER [Effexor XR] 150 mg PO DAILY Mirtazapine [Remeron] 30 mg PO HS Gabapentin [Neurontin] 300 mg PO TID Ergocalciferol [Vitamin D2 (DRISDOL)] 50,000 unit PO Q7D ARIPiprazole [Abilify] 15 mg PO HS Discharge Medication List ARIPiprazole [Abilify] 15 mg PO HS 10/20/16 [History] Ergocalciferol [Vitamin D2 (DRISDOL)] 50,000 unit PO Q7D 10/20/16 [History] Gabapentin [Neurontin] 300 mg PO TID 10/20/16 [History] Mirtazapine [Remeron] 30 mg PO HS 10/20/16 [History] Venlafaxine HCl ER [Effexor XR] 150 mg PO DAILY 10/20/16 [History] Acetaminophen Tab [Tylenol] 650 mg PO Q6HR PRN tab 10/22/16 [Rx] Famotidine [Pepcid] 20 mg PO DAILY #20 tablet 10/22/16 [Rx] Follow up Appointment(s)/Referral(s): Cydney Hightower MD [Primary Care Provider] - 10/25/16 7:30 am Ambulatory/Diagnostic Orders: Complete Blood Count w/diff [LAB.AMB] Location: Determined By Patient Patient Instructions/Handouts: Famotidine (By mouth), Acute Kidney Injury (DC) , Acute Nausea and Vomiting (DC) Activity/Diet/Wound Care/Special Instructions: Diet: soft bland Activity as tolerated See prescription to have blood work (CBC and BMP) drawn in 3 days Discharge Disposition: HOME SELF-CARE
== END 2016-10-22 12:23 | disposition home or self-care (01) ==
LOC: EC 11:12 → INTOOBSV 15:16 → 4MS4W 15:16 → 5MS5E 15:35
PROVIDERS: ADMIT Hospitalist; ATTEND Hospitalist
DX: N17.0 Acute kidney failure with tubular necrosis (principal); F41.0 Panic disorder [episodic paroxysmal anxiety]; F17.200 Nicotine dependence, unspecified, uncomplicated; F90.9 Attention-deficit hyperactivity disorder, unspecified type; G40.909 Epilepsy, unspecified, not intractable, without status epilepticus; G43.909 Migraine, unspecified, not intractable, without status migrainosus; K29.00 Acute gastritis without bleeding; N40.0 Benign prostatic hyperplasia without lower urinary tract symptoms; F32.9 Major depressive disorder, single episode, unspecified; Z79.899 Other long term (current) drug therapy; Z86.14 Personal history of Methicillin resistant Staphylococcus aureus infection; Z87.442 Personal history of urinary calculi; Z88.6 Allergy status to analgesic agent; Z88.4 Allergy status to anesthetic agent
CPT/HCPCS: 96376 ×3; 96361 ×3; 96375 ×2; 96374; 99285; 36415; 80053 ×2; 80048; 82150; 83690; 85025 ×3; 81003; 83520 ×2; 74000; 74176; G0378 ×3; J2405 ×3; J1170; C9113 ×3

== ENCOUNTER 2016-10-30 10:08 | Emergency (ER) | payer OTHER ==
[2016-10-30 10:30] VITALS: TEMP 97.4
[2016-10-30] MEDS ORDERED: SODIUM CHLORIDE 0.9% 500 ML IV STA (10:50)
[2016-10-30] MEDS ORDERED: SODIUM CHLORIDE 0.9% 500 ML IV ONE (10:53)
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
[2016-10-30 11:17] LABS: Appearance,Urine Clear (Clear); Bilirubin,Urine Negative (Negative); Glucose,Urine (UA) Trace (Negative); Ketones,Urine Negative (Negative); Leukocyte Esterase,Urine Negative (Negative); Nitrite,Urine Negative (Negative); PH, Urine 5.5 (5.0-8.0); Protein,Urine Trace (Negative); Specific Gravity,Urine 1.027 (1.001-1.035); UA Billing (MACRO vs. MICRO) CHEM; Urobilinogen,Urine <2.0 mg/dL (<2.0)
[2016-10-30 11:18] LABS: Basophils # (A) 0.1 k/uL (0-0.2); Basophils % (A) 1 %; CH 32.4; CHCM 34.2; Eosinophils # (A) 0.2 k/uL (0-0.7); Eosinophils % (A) 2 %; HCT 42.7 % (39.0-53.0); HDW 2.52; HGB 13.9 gm/dL (13.0-17.5); Luc # (Auto) 0.13; Luc % (Auto) 1; Lymphocytes # (A) 1.7 k/uL (1.0-4.8); Lymphocytes % (A) 17 %; MCHC 32.5 g/dL (31.0-37.0); MCV 95.4 fL (80.0-100.0); Mean Platelet Volume 7.7; Monocytes # (A) 0.6 k/uL (0-1.0); Monocytes % (A) 6 %; Neutrophils # (A) 7.1 k/uL (1.3-7.7); Neutrophils % (A) 73 %; RBC 4.48 m/uL (4.30-5.90); RDW 13.3 % (11.5-15.5); WBC 9.8 k/uL (3.8-10.6); WBC (Perox) 9.67
[2016-10-30 11:25] LABS: ALT 27 U/L (21-72); AST 18 U/L (17-59); Alkaline Phosphatase 95 U/L (38-126); Amylase 50 U/L (30-110); Anion Gap 9 mmol/L; Blood Urea Nitrogen 16 mg/dL (9-20); Calcium 9.3 mg/dL (8.4-10.2); Carbon Dioxide 29 mmol/L (22-30); Chloride 101 mmol/L (98-107); Glucose 131 mg/dL (74-99); Non-African American GFR(MDRD) >60 (>60 ml/min/1.73 sqM); Potassium 3.5 mmol/L (3.5-5.1); Sodium 139 mmol/L (137-145); Total Bilirubin 0.2 mg/dL (0.2-1.3); Total Protein 6.3 g/dL (6.3-8.2)
[2016-10-30] MEDS ORDERED: ONDANSETRON 4 MG ODT STARTER PACK 2 TAB BTL PO STA (11:31)
[2016-10-30 11:39] VITALS: BP 121/73; PULSE 69; RESP 16
== END 2016-10-30 11:56 | disposition home or self-care (01) ==
LOC: EC 10:08
DX: R10.9 Unspecified abdominal pain (principal); R11.2 Nausea with vomiting, unspecified; G40.909 Epilepsy, unspecified, not intractable, without status epilepticus; F90.9 Attention-deficit hyperactivity disorder, unspecified type; F32.9 Major depressive disorder, single episode, unspecified; F41.9 Anxiety disorder, unspecified; F41.0 Panic disorder [episodic paroxysmal anxiety]; F17.200 Nicotine dependence, unspecified, uncomplicated; Z79.899 Other long term (current) drug therapy; Z88.8 Allergy status to other drugs, medicaments and biological substances
CPT/HCPCS: 36415; 80053; 81003; 82150; 83690; 85025; 96360; 99284

== ENCOUNTER 2016-11-15 17:45 | Emergency (ER) | payer OTHER ==
[2016-11-15] MEDS ORDERED: HYDROmorphone 1 MG/ML 1 ML SYRINGE IVP STA (17:58)
[2016-11-15] MEDS ORDERED: KETOROLAC 30 MG/ML 1 ML VIAL IVP STA (17:58)
[2016-11-15] MEDS ORDERED: SODIUM CHLORIDE 0.9% 500 ML IV STA (17:58)
[2016-11-15] MEDS ORDERED: ONDANSETRON 4 MG/2 ML VIAL IVP STA (17:58)
[2016-11-15] MEDS ORDERED: SODIUM CHLORIDE 0.9% 1,000 ML IV STA (17:58)
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
[2016-11-15 18:25] LABS: Basophils # (A) 0.1 k/uL (0-0.2); Basophils % (A) 1 %; CHCM 34.8; Eosinophils % (A) 0 %; HCT 42.1 % (39.0-53.0); HDW 2.62; HGB 13.7 gm/dL (13.0-17.5); Luc # (Auto) 0.09; Luc % (Auto) 1; Lymphocytes # (A) 1.7 k/uL (1.0-4.8); Lymphocytes % (A) 20 %; MCH 31.1 pg (25.0-35.0); MCHC 32.7 g/dL (31.0-37.0); MCV 95.1 fL (80.0-100.0); Mean Platelet Volume 7.6; Monocytes # (A) 0.4 k/uL (0-1.0); Monocytes % (A) 4 %; Neutrophils # (A) 6.6 k/uL (1.3-7.7); Neutrophils % (A) 74 %; RBC 4.42 m/uL (4.30-5.90); RDW 13.7 % (11.5-15.5); WBC 8.9 k/uL (3.8-10.6); WBC (Perox) 8.97
[2016-11-15 18:39] LABS: ALT 27 U/L (21-72); AST 18 U/L (17-59); Alkaline Phosphatase 84 U/L (38-126); Amylase 38 U/L (30-110); Anion Gap 6 mmol/L; Blood Urea Nitrogen 6 mg/dL (9-20); Carbon Dioxide 30 mmol/L (22-30); Chloride 104 mmol/L (98-107); Glucose 87 mg/dL (74-99); Non-African American GFR(MDRD) >60 (>60 ml/min/1.73 sqM); Potassium 3.6 mmol/L (3.5-5.1); Sodium 140 mmol/L (137-145); Total Bilirubin 0.5 mg/dL (0.2-1.3); Total Protein 5.7 g/dL (6.3-8.2)
--- NOTE | 2016-11-15 19:09 | XR ---
EXAMINATION TYPE: XR KUB DATE OF EXAM: 11/15/2016 COMPARISON: 10/20/2016 HISTORY: Right-sided pain TECHNIQUE: 2 views FINDINGS: There is no sign of intestinal obstruction or pneumoperitoneum. Fecal pattern is normal. Th ere is no evidence of a mass. Lung bases are clear. There are no pathologic calcifications over the k idneys. IMPRESSION: Nonacute abdomen. No change.
[2016-11-15 19:24] LABS: Appearance,Urine Clear (Clear); Bilirubin,Urine Negative (Negative); Glucose,Urine (UA) Negative (Negative); Ketones,Urine Negative (Negative); Leukocyte Esterase,Urine Negative (Negative); Nitrite,Urine Negative (Negative); Protein,Urine Trace (Negative); Specific Gravity,Urine 1.015 (1.001-1.035); UA Billing (MACRO vs. MICRO) CHEM
[2016-11-15 19:47] VITALS: BP 112/54; PULSE 76; RESP 16; TEMP 98
== END 2016-11-15 19:46 | disposition home or self-care (01) ==
LOC: EC 17:45
DX: R10.9 Unspecified abdominal pain (principal); R11.2 Nausea with vomiting, unspecified; F17.200 Nicotine dependence, unspecified, uncomplicated; Z88.8 Allergy status to other drugs, medicaments and biological substances
CPT/HCPCS: 36415; 80053; 82150; 83690; 85025; 81003; 74000; 99283; 96374; 96375 ×2; 96361; J2405; J1885; J1170

== ENCOUNTER 2016-12-23 22:37 | Emergency (ER) | payer OTHER ==
[2016-12-23 22:41] VITALS: BP 117/80; PULSE 97; RESP 16; TEMP 98.5
[2016-12-23] MEDS ORDERED: ONDANSETRON 4 MG/2 ML VIAL IVP STA (22:55)
[2016-12-23] MEDS ORDERED: KETOROLAC 30 MG/ML 1 ML VIAL IVP STA (22:55)
[2016-12-23] MEDS ORDERED: SODIUM CHLORIDE 0.9% 1,000 ML IV ONE (22:55)
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
[2016-12-23 23:14] LABS: Basophils # (A) 0.1 k/uL (0-0.2); Basophils % (A) 1 %; Eosinophils # (A) 0.1 k/uL (0-0.7); Eosinophils % (A) 1 %; HCT 42.5 % (39.0-53.0); HGB 14.1 gm/dL (13.0-17.5); Luc # (Auto) 0.15; Luc % (Auto) 2; Lymphocytes # (A) 1.9 k/uL (1.0-4.8); Lymphocytes % (A) 19 %; MCH 32.3 pg (25.0-35.0); MCHC 33.2 g/dL (31.0-37.0); MCV 97.2 fL (80.0-100.0); Monocytes # (A) 0.5 k/uL (0-1.0); Monocytes % (A) 5 %; Neutrophils # (A) 7.1 k/uL (1.3-7.7); Neutrophils % (A) 73 %; RBC 4.37 m/uL (4.30-5.90); RDW 12.7 % (11.5-15.5); WBC 9.7 k/uL (3.8-10.6); WBC (Perox) 10.12
[2016-12-23 23:26] LABS: Anion Gap 9 mmol/L; Blood Urea Nitrogen 8 mg/dL (9-20); Calcium 9.3 mg/dL (8.4-10.2); Carbon Dioxide 24 mmol/L (22-30); Chloride 106 mmol/L (98-107); Glucose 158 mg/dL (74-99); Non-African American GFR(MDRD) >60 (>60 ml/min/1.73 sqM); Potassium 3.7 mmol/L (3.5-5.1); Sodium 139 mmol/L (137-145)
[2016-12-23 23:30] LABS: Appearance,Urine Clear (Clear); Bilirubin,Urine Negative (Negative); Glucose,Urine (UA) Negative (Negative); Ketones,Urine Trace (Negative); Leukocyte Esterase,Urine Negative (Negative); Nitrite,Urine Negative (Negative); PH, Urine 5.5 (5.0-8.0); Protein,Urine Trace (Negative); Specific Gravity,Urine 1.024 (1.001-1.035); UA Billing (MACRO vs. MICRO) CHEM
== END 2016-12-24 00:40 | disposition home or self-care (01) ==
LOC: EC 22:37
DX: K92.0 Hematemesis (principal); M54.9 Dorsalgia, unspecified; G40.909 Epilepsy, unspecified, not intractable, without status epilepticus; F32.9 Major depressive disorder, single episode, unspecified; F41.9 Anxiety disorder, unspecified; F17.200 Nicotine dependence, unspecified, uncomplicated; Z79.899 Other long term (current) drug therapy; Z88.4 Allergy status to anesthetic agent; Z88.5 Allergy status to narcotic agent; Z88.8 Allergy status to other drugs, medicaments and biological substances
CPT/HCPCS: 96361 ×3; 96374 ×2; 96375 ×2; 99284 ×2; 36415; 80048; 85025; 81003; J2405; J1885

== ENCOUNTER 2017-02-05 18:03 | Observation (INO) | payer OTHER ==
[2017-02-05] MEDS ORDERED: SODIUM CHLORIDE 0.9% 1,000 ML IV ONE (18:10)
[2017-02-05] MEDS ORDERED: LORazepam 2 MG/ML INJ IV STA (18:11)
[2017-02-05 18:58] LABS: ALT 24 U/L (21-72); AST 14 U/L (17-59); Alkaline Phosphatase 70 U/L (38-126); Anion Gap 6 mmol/L; Blood Urea Nitrogen 5 mg/dL (9-20); Calcium 9.1 mg/dL (8.4-10.2); Carbon Dioxide 26 mmol/L (22-30); Chloride 109 mmol/L (98-107); Glucose 72 mg/dL (74-99); Magnesium 1.8 mg/dL (1.6-2.3); Non-African American GFR(MDRD) >60 (>60 ml/min/1.73 sqM); Potassium 3.3 mmol/L (3.5-5.1); Sodium 141 mmol/L (137-145); Total Bilirubin 0.6 mg/dL (0.2-1.3); Total Protein 5.5 g/dL (6.3-8.2)
[2017-02-05 19:10] LABS: Basophils % (A) 0 %; CH 31.3; CHCM 33.8; Eosinophils # (A) 0.2 k/uL (0-0.7); Eosinophils % (A) 2 %; HCT 38.9 % (39.0-53.0); HDW 2.54; Luc % (Auto) 1; Lymphocytes # (A) 1.6 k/uL (1.0-4.8); Lymphocytes % (A) 15 %; MCH 31.2 pg (25.0-35.0); MCHC 33.5 g/dL (31.0-37.0); MCV 93.1 fL (80.0-100.0); Mean Platelet Volume 7.5; Monocytes # (A) 0.7 k/uL (0-1.0); Monocytes % (A) 7 %; Neutrophils # (A) 8.3 k/uL (1.3-7.7); Neutrophils % (A) 76 %; RBC 4.18 m/uL (4.30-5.90); RDW 12.4 % (11.5-15.5); WBC (Perox) 10.81
--- NOTE | 2017-02-05 19:56 | CT ---
EXAMINATION TYPE: CT brain maritzaine wo con DATE OF EXAM: 02/05/2017 COMPARISON: NONE HISTORY: Patient poor historian. Seizure with fall? CT DLP: 1137.7 mGycm. Automated Exposure Control for Dose Reduction was Utilized. TECHNIQUE: CT scan of the head and cervical spine are performed without contrast. FINDINGS: There is no acute intracranial hemorrhage, mass effect, or midline shift identified. The ventricles and sulci are within normal limits in size. The globes are intact and the visualized sin uses are clear. Small normal variant cavum septum lucidum is noted anteriorly. This is unchanged in t he prior of 10/05/2015. Complete opacification of the visualized portions of the maxillary sinuses and near complete opacification of the ethmoid air cells with inspissated secretions in the posterior na sopharynx are noted and minimal mucosal thickening in the sphenoid sinus. Frontal sinuses and mastoid air cells are well aerated. This finding is also similar to the prior exam of 10/05/2015. Cervical spine is visualized in its entirety from C1 through upper thoracic levels and demonstrates s atisfactory alignment without evidence of acute fracture or dislocation. There is limitation of the c ervical spine given patient motion. Prevertebral soft tissue appears within normal limits. The C1-C 2 articulation is unremarkable. Incidental note is made of a high riding left jugular bulb. Mild par aseptal emphysematous changes are seen at the lung apices. IMPRESSION: 1. Limitation of the evaluation of the cervical spine given patient motion. However there is no gross evidence for acute fracture or dislocation in the cervical spine. 2. No acute intracranial hemorrhage, mass effect, or midline shift is seen. 3. Redemonstration of severe paranasal sinus disease, similar to the exam of 10/05/2015. 4. Partial visualization of mild preseptal emphysematous changes seen at the lung apices.
[2017-02-05] MEDS ORDERED: POTASSIUM CHLORIDE ER 20 MEQ TAB.ER PO STA (20:01)
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
[2017-02-05] MEDS ORDERED: NALOXONE 0.4 MG/ML 1 ML VIAL IV PRN (20:40)
[2017-02-05 21:09] LABS: Glucose,Whole Blood 93 mg/dL (75-99)
[2017-02-05] MEDS ORDERED: 0.9% NACL WITH KCL 20 MEQ/L 1,000 ML IV SCH (21:15)
[2017-02-05] MEDS ORDERED: LORazepam 2 MG/ML INJ IV PRN (23:21)
[2017-02-05] MEDS ORDERED: MIRTAZAPINE 15 MG TAB PO SCH (23:30)
[2017-02-05] MEDS ORDERED: ARIPiprazole 15 MG TAB PO SCH (23:30)
[2017-02-05] MEDS: HYDROcodone/APAP 5-325MG 1 EACH TAB PO PRN (23:44)
[2017-02-06] MEDS: GABAPENTIN 300 MG CAP PO SCH ×3 (00:01→16:24)
[2017-02-06 07:42] VITALS: RESP 20; TEMP 98.1
[2017-02-06 07:54] LABS: Basophils # (A) 0.1 k/uL (0-0.2); Basophils % (A) 1 %; CH 31.1; CHCM 31.9; Eosinophils # (A) 0.3 k/uL (0-0.7); Eosinophils % (A) 4 %; HCT 41.4 % (39.0-53.0); HDW 2.32; HGB 13.1 gm/dL (13.0-17.5); Luc # (Auto) 0.09; Luc % (Auto) 1; Lymphocytes # (A) 2.2 k/uL (1.0-4.8); Lymphocytes % (A) 24 %; MCH 31.1 pg (25.0-35.0); MCHC 31.8 g/dL (31.0-37.0); Mean Platelet Volume 7.7; Monocytes # (A) 0.6 k/uL (0-1.0); Monocytes % (A) 6 %; Neutrophils # (A) 5.7 k/uL (1.3-7.7); Neutrophils % (A) 64 %; RBC 4.22 m/uL (4.30-5.90); RDW 13.6 % (11.5-15.5); WBC (Perox) 8.41
[2017-02-06 07:58] LABS: Anion Gap 5 mmol/L; Blood Urea Nitrogen 8 mg/dL (9-20); Calcium 9.6 mg/dL (8.4-10.2); Carbon Dioxide 26 mmol/L (22-30); Chloride 112 mmol/L (98-107); Glucose 92 mg/dL (74-99); Magnesium 1.9 mg/dL (1.6-2.3); Non-African American GFR(MDRD) >60 (>60 ml/min/1.73 sqM); Sodium 143 mmol/L (137-145)
[2017-02-06] MEDS: HYDROcodone/APAP 5-325MG 1 EACH TAB PO PRN ×2 (10:26→16:24)
[2017-02-06] MEDS ORDERED: IPRATROPIUM-ALBUTEROL 3 ML NEB INHALATION PRN (10:51)
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
--- NOTE | 2017-02-06 14:15 | P.DS ---
Providers Date of admission: 02/05/17 21:28 Attending physician: Nathaly Carcamo Consults: 02/05/17 21:12 Consult Physician Routine Consulting Provider: Kimberley Mai Consult Reason/Comments: seizures Do you want consulting provider notified?: Yes, Notify in am Primary care physician: Cydney Hightower [facility] Hospital Course: Please refer to my HPI Patient Condition at Discharge: Fair Plan - Discharge Summary New Discharge Prescriptions: New Albuterol Inhaler [Ventolin Hfa Inhaler] 1 - 2 puff INHALATION Q6HR PRN #1 inhaler PRN Reason: Shortness Of Breath Or Wheezing No Action Mirtazapine [Remeron] 30 mg PO HS Gabapentin [Neurontin] 300 mg PO TID ARIPiprazole [Abilify] 15 mg PO HS Discharge Medication List ARIPiprazole [Abilify] 15 mg PO HS 12/13/16 [History] Gabapentin [Neurontin] 300 mg PO TID 12/13/16 [History] Mirtazapine [Remeron] 30 mg PO HS 12/13/16 [History] Albuterol Inhaler [Ventolin Hfa Inhaler] 1 - 2 puff INHALATION Q6HR PRN #1 inhaler 02/06/17 [Rx] Follow up Appointment(s)/Referral(s): Cydney Hightower MD [Primary Care Provider] - 3 Days Discharge Disposition: HOME SELF-CARE
[2017-02-06 14:56] VITALS: BP 108/69; PULSE 96
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
[2017-02-06] MEDS ORDERED: VALPROATE SODIUM 1,000 MG in SODIUM CHLORIDE 0.9% 50 ML IVPB STA (17:28)
[2017-02-06] MEDS ORDERED: SYMBICORT 160-4.5 MCG INHALER INHALATION SCH (20:00)
[2017-02-06] MEDS ORDERED: DIVALPROEX ER 500 MG TAB.ER.24H PO SCH (21:00)
== END 2017-02-06 17:39 | disposition left against medical advice (07) ==
LOC: EC 18:03 → 4MS4W 21:28
PROVIDERS: ADMIT Internal Medicine; ATTEND Internal Medicine
DX: G40.909 Epilepsy, unspecified, not intractable, without status epilepticus (principal); E87.6 Hypokalemia; D72.829 Elevated white blood cell count, unspecified; F90.9 Attention-deficit hyperactivity disorder, unspecified type; F41.0 Panic disorder [episodic paroxysmal anxiety]; F32.9 Major depressive disorder, single episode, unspecified; F17.200 Nicotine dependence, unspecified, uncomplicated; Z87.820 Personal history of traumatic brain injury; Z86.14 Personal history of Methicillin resistant Staphylococcus aureus infection; W06.XXXA Fall from bed, initial encounter; Z79.899 Other long term (current) drug therapy; Z88.5 Allergy status to narcotic agent; Z88.8 Allergy status to other drugs, medicaments and biological substances; G43.909 Migraine, unspecified, not intractable, without status migrainosus; M19.90 Unspecified osteoarthritis, unspecified site
CPT/HCPCS: 99285 ×2; 96374 ×2; 96361 ×2; 36415; 93005; 80053; 80048; 83605; 83735 ×2; 85025 ×2; 72125; 70450; G0378 ×2; J2060

== ENCOUNTER 2017-05-17 13:43 | Emergency (ER) | payer OTHER ==
[2017-05-17 14:07] VITALS: RESP 18
[2017-05-17] MEDS ORDERED: HYDROcodone/APAP 5-325MG 1 EACH TAB PO STA (14:31)
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
--- NOTE | 2017-05-17 15:00 | XR ---
EXAMINATION TYPE: XR foot complete RT DATE OF EXAM: 05/17/2017 COMPARISON: 12/13/2016 HISTORY: Pain TECHNIQUE: Three views are submitted. FINDINGS: The osseous structures are intact and the joint spaces are preserved. There is no acute fracture or dislocation. Postsurgical change involving the lateral margin of the ankle and foot. Diffuse osteopen ia. Arthropathy first MTP. Pes planus deformity. IMPRESSION: 1. No acute fracture or dislocation. If symptoms persist, follow-up exam in 7 to 10 days could be ob tained.
[2017-05-17 15:32] VITALS: BP 120/60; PULSE 70; TEMP 98
== END 2017-05-17 15:28 | disposition home or self-care (01) ==
LOC: EC 13:43
DX: S90.31XA Contusion of right foot, initial encounter (principal); M85.871 Other specified disorders of bone density and structure, right ankle and foot; M12.871 Other specific arthropathies, not elsewhere classified, right ankle and foot; M21.41 Flat foot [pes planus] (acquired), right foot; G40.909 Epilepsy, unspecified, not intractable, without status epilepticus; F32.9 Major depressive disorder, single episode, unspecified; F41.9 Anxiety disorder, unspecified; F17.200 Nicotine dependence, unspecified, uncomplicated; Z79.899 Other long term (current) drug therapy; Z88.5 Allergy status to narcotic agent; Z88.8 Allergy status to other drugs, medicaments and biological substances; Z86.14 Personal history of Methicillin resistant Staphylococcus aureus infection; Z98.890 Other specified postprocedural states; W22.8XXA Striking against or struck by other objects, initial encounter; Y92.69 Other specified industrial and construction area as the place of occurrence of the external cause; Y99.0 Civilian activity done for income or pay
CPT/HCPCS: 99283

== ENCOUNTER → 2017-05-20 | Outpatient (CLI) | payer OTHER ==
--- NOTE | 2017-05-20 11:44 | XR ---
EXAMINATION TYPE: XR ankle complete RT DATE OF EXAM: 05/20/2017 CLINICAL HISTORY: Injury Gauri with pain and swelling. TECHNIQUE: Frontal, lateral and oblique images of the right ankle are obtained. COMPARISON: Right ankle x-ray December 13, 2016 FINDINGS: There is new moderate soft tissue swelling over the lateral malleolus. No acute fracture o r dislocation is seen. Ankle mortise symmetry is maintained. Extensive postsurgical change to reveal fracture deformity of calcaneus is redemonstrated. IMPRESSION: New moderate soft tissue swelling over lateral malleolus without acute fracture or disloc ation seen.
== END | disposition home or self-care (01) ==
LOC: RADXRMAIN 11:09
PROVIDERS: ATTEND Emergency Medicine
DX: M79.89 Other specified soft tissue disorders (principal)

== ENCOUNTER 2017-05-27 19:24 | Emergency (ER) | payer OTHER ==
[2017-05-27] MEDS ORDERED: KETOROLAC 30 MG/ML 1 ML VIAL IVP STA (20:18)
[2017-05-27] MEDS ORDERED: SODIUM CHLORIDE 0.9% 1,000 ML IV ONE (20:18)
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
[2017-05-27 20:43] LABS: Basophils % (A) 0 %; Eosinophils # (A) 0.1 k/uL (0-0.7); Eosinophils % (A) 1 %; HCT 39.3 % (39.0-53.0); HGB 13.4 gm/dL (13.0-17.5); Lymphocytes # (A) 1.5 k/uL (1.0-4.8); Lymphocytes % (A) 11 %; MCH 31.2 pg (25.0-35.0); MCHC 34.2 g/dL (31.0-37.0); MCV 91.4 fL (80.0-100.0); Monocytes # (A) 0.7 k/uL (0-1.0); Monocytes % (A) 5 %; Neutrophils # (A) 10.7 k/uL (1.3-7.7); Neutrophils % (A) 82 %; Platelet Count 290 k/uL (150-450); RDW 12.7 % (11.5-15.5); WBC 13.1 k/uL (3.8-10.6)
[2017-05-27 21:03] LABS: ALT 20 U/L (21-72); AST 13 U/L (17-59); Albumin 3.7 g/dL (3.5-5.0); Alkaline Phosphatase 88 U/L (38-126); Anion Gap 10 mmol/L; Blood Urea Nitrogen 6 mg/dL (9-20); Calcium 9.3 mg/dL (8.4-10.2); Carbon Dioxide 26 mmol/L (22-30); Chloride 107 mmol/L (98-107); Glucose 111 mg/dL (74-99); Potassium 3.9 mmol/L (3.5-5.1); Sodium 143 mmol/L (137-145); Total Bilirubin 0.5 mg/dL (0.2-1.3)
[2017-05-27] MEDS ORDERED: cefTRIAXone IN SWFI 1,000 MG/10 ML SYRINGE IVP STA (21:58)
[2017-05-27 22:11] VITALS: TEMP 98.5
[2017-05-27 22:33] VITALS: BP 114/69; PULSE 60; RESP 16
== END 2017-05-27 22:38 | disposition home or self-care (01) ==
LOC: EC 19:24
DX: L03.114 Cellulitis of left upper limb (principal); G40.909 Epilepsy, unspecified, not intractable, without status epilepticus; F90.9 Attention-deficit hyperactivity disorder, unspecified type; F32.9 Major depressive disorder, single episode, unspecified; F41.0 Panic disorder [episodic paroxysmal anxiety]; F17.200 Nicotine dependence, unspecified, uncomplicated; Z86.14 Personal history of Methicillin resistant Staphylococcus aureus infection; Z79.899 Other long term (current) drug therapy; Z88.6 Allergy status to analgesic agent; Z88.8 Allergy status to other drugs, medicaments and biological substances
CPT/HCPCS: 99283; 96374; 96375; 96361; 36415; 80053; 85025; 87040; J0696; J1885

== ENCOUNTER 2017-05-30 21:37 | Emergency (ER) | payer OTHER ==
[2017-05-30 21:57] VITALS: BP 114/60; PULSE 75; RESP 18; TEMP 98.6
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
== END 2017-05-30 22:57 | disposition home or self-care (01) ==
LOC: EC 21:37
DX: L02.414 Cutaneous abscess of left upper limb (principal); G40.909 Epilepsy, unspecified, not intractable, without status epilepticus; F31.9 Bipolar disorder, unspecified; F90.9 Attention-deficit hyperactivity disorder, unspecified type; F41.0 Panic disorder [episodic paroxysmal anxiety]; F17.200 Nicotine dependence, unspecified, uncomplicated; Z86.14 Personal history of Methicillin resistant Staphylococcus aureus infection; Z79.899 Other long term (current) drug therapy; Z88.2 Allergy status to sulfonamides; Z88.6 Allergy status to analgesic agent; Z88.8 Allergy status to other drugs, medicaments and biological substances
CPT/HCPCS: 10060; 87070; 87077; 87186; 87205; 99283

== ENCOUNTER 2017-06-02 21:10 | Emergency (ER) | payer OTHER ==
[2017-06-02 21:24] VITALS: BP 117/67; PULSE 90; RESP 18; TEMP 97.9
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
== END 2017-06-02 21:55 | disposition home or self-care (01) ==
LOC: EC 21:10
DX: L02.414 Cutaneous abscess of left upper limb (principal); L84 Corns and callosities; G40.909 Epilepsy, unspecified, not intractable, without status epilepticus; F41.9 Anxiety disorder, unspecified; F32.9 Major depressive disorder, single episode, unspecified; F17.200 Nicotine dependence, unspecified, uncomplicated; Z86.14 Personal history of Methicillin resistant Staphylococcus aureus infection; Z88.2 Allergy status to sulfonamides; Z88.6 Allergy status to analgesic agent; Z88.8 Allergy status to other drugs, medicaments and biological substances; Z79.899 Other long term (current) drug therapy
CPT/HCPCS: 99282

== ENCOUNTER 2017-06-21 12:31 | Emergency (ER) | payer OTHER ==
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
[2017-06-21 13:53] VITALS: BP 126/78; PULSE 78; RESP 20; TEMP 98
== END 2017-06-21 13:53 | disposition home or self-care (01) ==
LOC: EC 12:31
DX: L02.414 Cutaneous abscess of left upper limb (principal); F41.0 Panic disorder [episodic paroxysmal anxiety]; F32.9 Major depressive disorder, single episode, unspecified; F90.9 Attention-deficit hyperactivity disorder, unspecified type; G40.909 Epilepsy, unspecified, not intractable, without status epilepticus; F17.200 Nicotine dependence, unspecified, uncomplicated; Z79.899 Other long term (current) drug therapy; Z88.2 Allergy status to sulfonamides; Z88.6 Allergy status to analgesic agent; Z88.8 Allergy status to other drugs, medicaments and biological substances; Z86.69 Personal history of other diseases of the nervous system and sense organs; Z86.14 Personal history of Methicillin resistant Staphylococcus aureus infection; Z98.890 Other specified postprocedural states
CPT/HCPCS: 87070; 87205; 99282

== ENCOUNTER 2017-07-27 23:08 | Emergency (ER) | payer OTHER ==
[2017-07-27 23:13] VITALS: BP 114/66; PULSE 90; RESP 16; TEMP 98.1
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
== END 2017-07-27 23:57 | disposition home or self-care (01) ==
LOC: EC 23:08
DX: Z02.79 Encounter for issue of other medical certificate (principal); G40.909 Epilepsy, unspecified, not intractable, without status epilepticus; F41.0 Panic disorder [episodic paroxysmal anxiety]; F90.9 Attention-deficit hyperactivity disorder, unspecified type; F41.9 Anxiety disorder, unspecified; F17.200 Nicotine dependence, unspecified, uncomplicated; Z86.14 Personal history of Methicillin resistant Staphylococcus aureus infection; Z79.899 Other long term (current) drug therapy; Z88.2 Allergy status to sulfonamides; Z88.6 Allergy status to analgesic agent; Z88.8 Allergy status to other drugs, medicaments and biological substances
CPT/HCPCS: 99281

== ENCOUNTER 2017-09-21 20:00 | Emergency (ER) | payer OTHER ==
[2017-09-21] MEDS ORDERED: SODIUM CHLORIDE 0.9% 1,000 ML IV STA (20:23)
[2017-09-21] MEDS ORDERED: KETOROLAC 30 MG/ML 1 ML VIAL IVP STA (20:23)
[2017-09-21] MEDS ORDERED: ONDANSETRON 4 MG/2 ML VIAL IVP STA (20:23)
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
[2017-09-21 20:33] LABS: Basophils # (A) 0.1 k/uL (0-0.2); Basophils % (A) 1 %; Eosinophils # (A) 0.2 k/uL (0-0.7); Eosinophils % (A) 2 %; HCT 45.7 % (39.0-53.0); HGB 15.3 gm/dL (13.0-17.5); Lymphocytes # (A) 2.7 k/uL (1.0-4.8); Lymphocytes % (A) 25 %; MCH 31.6 pg (25.0-35.0); MCHC 33.4 g/dL (31.0-37.0); MCV 94.6 fL (80.0-100.0); Mean Platelet Volume 7.2; Monocytes # (A) 0.5 k/uL (0-1.0); Monocytes % (A) 5 %; Neutrophils # (A) 7.2 k/uL (1.3-7.7); Neutrophils % (A) 66 %; Platelet Count 273 k/uL (150-450); RBC 4.83 m/uL (4.30-5.90); WBC 10.9 k/uL (3.8-10.6)
[2017-09-21 20:44] LABS: Appearance,Urine Clear (Clear); Bilirubin,Urine Negative (Negative); Blood,Urine Negative (Negative); Color,Urine Yellow; Glucose,Urine (UA) Negative (Negative); Ketones,Urine Negative (Negative); Leukocyte Esterase,Urine Negative (Negative); Nitrite,Urine Negative (Negative); PH, Urine 5.5 (5.0-8.0); Protein,Urine Trace (Negative); Specific Gravity,Urine 1.019 (1.001-1.035)
[2017-09-21 20:44] LABS: ALT 24 U/L (21-72); AST 20 U/L (17-59); Albumin 3.7 g/dL (3.5-5.0); Alkaline Phosphatase 71 U/L (38-126); Amylase 38 U/L (30-110); Anion Gap 9 mmol/L; Blood Urea Nitrogen 10 mg/dL (9-20); Calcium 9.2 mg/dL (8.4-10.2); Carbon Dioxide 27 mmol/L (22-30); Chloride 104 mmol/L (98-107); Glucose 106 mg/dL (74-99); Lipase 53 U/L (23-300); Potassium 3.8 mmol/L (3.5-5.1); Sodium 140 mmol/L (137-145); Total Bilirubin 0.4 mg/dL (0.2-1.3); Total Protein 5.8 g/dL (6.3-8.2)
--- NOTE | 2017-09-21 20:50 | XR ---
EXAMINATION TYPE: XR KUB DATE OF EXAM: 09/21/2017 COMPARISON: 11/15/2016 HISTORY: Abdominal pain TECHNIQUE: 2 views FINDINGS: There is no sign of intestinal obstruction or pneumoperitoneum. Fecal pattern is normal. Th ere is no evidence of a mass. IMPRESSION: Nonacute abdomen. No change.
--- NOTE | 2017-09-21 21:43 | CT ---
EXAMINATION TYPE: CT thor lumbar spine wo con DATE OF EXAM: 09/21/2017 COMPARISON: NONE HISTORY: Back pain. CT DLP: 312.6 mGycm Automated exposure control for dose reduction was used. FINDINGS: The thoracic and lumbar vertebra have normal spacing and alignment. There is no compression fracture. There is no thoracic paraspinal mass. I see no bony destructive process. The sacroiliac joints appea r normal. The posterior elements are intact. IMPRESSION: NEGATIVE CT SCAN OF THE THORACIC AND LUMBAR SPINE.
[2017-09-21 22:11] VITALS: BP 109/72; PULSE 57; RESP 18; TEMP 98.6
== END 2017-09-21 22:10 | disposition home or self-care (01) ==
LOC: EC 20:00
DX: R10.9 Unspecified abdominal pain (principal); R11.0 Nausea; D72.829 Elevated white blood cell count, unspecified; G40.909 Epilepsy, unspecified, not intractable, without status epilepticus; F90.9 Attention-deficit hyperactivity disorder, unspecified type; F41.0 Panic disorder [episodic paroxysmal anxiety]; F32.9 Major depressive disorder, single episode, unspecified; F17.200 Nicotine dependence, unspecified, uncomplicated; Z86.14 Personal history of Methicillin resistant Staphylococcus aureus infection; Z79.899 Other long term (current) drug therapy; Z88.8 Allergy status to other drugs, medicaments and biological substances; Z88.2 Allergy status to sulfonamides
CPT/HCPCS: 36415; 80053; 82150; 83605; 83690; 85025; 82272; 81003; 74018; 72128; 72131; 99284; 96374; 96375; 96361 ×2; J2405; J1885

== ENCOUNTER 2017-09-30 13:52 | Emergency (ER) | payer OTHER ==
[2017-09-30] MEDS ORDERED: ONDANSETRON ODT 4 MG TAB PO STA (14:18)
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
[2017-09-30 14:39] VITALS: BP 120/76; PULSE 81; RESP 16; TEMP 97.8
== END 2017-09-30 14:37 | disposition home or self-care (01) ==
LOC: EC 13:52
DX: M54.5 Low back pain (principal); R11.2 Nausea with vomiting, unspecified; G40.909 Epilepsy, unspecified, not intractable, without status epilepticus; F90.9 Attention-deficit hyperactivity disorder, unspecified type; F32.9 Major depressive disorder, single episode, unspecified; F41.0 Panic disorder [episodic paroxysmal anxiety]; F17.200 Nicotine dependence, unspecified, uncomplicated; Z86.14 Personal history of Methicillin resistant Staphylococcus aureus infection; Z79.899 Other long term (current) drug therapy; Z88.2 Allergy status to sulfonamides; Z88.5 Allergy status to narcotic agent; Z88.8 Allergy status to other drugs, medicaments and biological substances
CPT/HCPCS: 99283

== ENCOUNTER 2018-02-22 11:15 | Emergency (ER) | payer OTHER ==
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
--- NOTE | 2018-02-22 12:40 | XR ---
EXAMINATION TYPE: XR tibia fibula LT DATE OF EXAM: 02/22/2018 CLINICAL HISTORY: pain TECHNIQUE: AP and lateral images of the left tibia and fibula are obtained. COMPARISON: None. FINDINGS: There is no acute fracture/dislocation evident. The joint spaces appear within normal ledesma its. The overlying soft tissue appears unremarkable. IMPRESSION: There is no acute fracture or dislocation seen. ICD 10 NO FRACTURE, INITIAL EVALUATION
[2018-02-22] MEDS ORDERED: KETOROLAC 30 MG/ML 1 ML VIAL IM STA (13:00)
[2018-02-22 14:03] VITALS: BP 112/83; PULSE 64; RESP 16; TEMP 97.3
== END 2018-02-22 14:06 | disposition home or self-care (01) ==
LOC: EC 11:15
DX: S80.12XA Contusion of left lower leg, initial encounter (principal); F17.200 Nicotine dependence, unspecified, uncomplicated; Z88.2 Allergy status to sulfonamides; Z88.5 Allergy status to narcotic agent; Z88.8 Allergy status to other drugs, medicaments and biological substances; Z86.14 Personal history of Methicillin resistant Staphylococcus aureus infection; W18.2XXA Fall in (into) shower or empty bathtub, initial encounter
CPT/HCPCS: 73590; 99283; 96372; J1885

== ENCOUNTER 2018-08-04 08:36 | Emergency (ER) | payer OTHER ==
[2018-08-04] MEDS ORDERED: SODIUM CHLORIDE 0.9% 1,000 ML IV STA (09:01)
[2018-08-04] MEDS ORDERED: METOCLOPRAMIDE 5 MG/ML 2 ML VIAL IVP STA (09:01)
[2018-08-04] MEDS ORDERED: diphenhydrAMINE 50 MG/ML 1 ML VIAL IVP STA (09:01)
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
--- NOTE | 2018-08-04 09:26 | CT ---
EXAMINATION TYPE: CT brain wo con DATE OF EXAM: 08/04/2018 COMPARISON: 02/05/2017 HISTORY: Headache CT DLP: 1082.4 mGycm. Automated Exposure Control for Dose Reduction was Utilized. TECHNIQUE: CT scan of the head is performed without contrast. FINDINGS: There is no acute intracranial hemorrhage, mass effect, or midline shift identified. The ventricles and sulci are within normal limits in size. Very small cavum septum lucidum versus less l ikely small lipoma of the genu of the corpus callosum is incidentally noted. The globes are intact. There is near complete opacification of the right maxillary sinus with complex lamellated internal de nsity and air-fluid level. High density is seen centrally with circumferential peripheral low-attenua tion. There is also moderate mucosal thickening in the ethmoid sinuses. Sphenoid, frontal and left ma xillary sinus as well as the mastoid air cells are well aerated. IMPRESSION: 1. No acute intracranial hemorrhage, mass effect, or midline shift is seen. 2. Near complete opacification of the right maxillary sinus (severe right maxillary sinusitis) with i nternal complexity typically suggestive of an atypical infection such as fungal infection or internal hemorrhage. This appears acute on chronic in comparison to the prior.
[2018-08-04] MEDS ORDERED: KETOROLAC 30 MG/ML 1 ML VIAL IVP STA (09:29)
[2018-08-04 11:02] VITALS: BP 127/62; PULSE 79; RESP 19; TEMP 98
== END 2018-08-04 11:02 | disposition home or self-care (01) ==
LOC: EC 08:36
DX: J32.0 Chronic maxillary sinusitis (principal); R11.0 Nausea; F17.200 Nicotine dependence, unspecified, uncomplicated; Z87.820 Personal history of traumatic brain injury; Z86.14 Personal history of Methicillin resistant Staphylococcus aureus infection; Z86.69 Personal history of other diseases of the nervous system and sense organs; Z88.8 Allergy status to other drugs, medicaments and biological substances; Z88.5 Allergy status to narcotic agent; Z88.2 Allergy status to sulfonamides
CPT/HCPCS: 99283; 96374; 96375 ×2; 96361; 70450; J1200; J2765; J1885